=== PATIENT | female | born 1990 | race Caucasian/White ===

== ENCOUNTER 2017-05-09 13:36 | Emergency (ER) | payer OTHER ==
[~2017-05-09] VITALS: Ht 154.9 cm; Wt 38.6 kg
[~2017-05-09 13:36] MED LIST: AMOXIL500 MG PO; ANAPROX DS550 MG PO; AUGMENTIN 875875 MG PO; BACTRIM DS 8001 TA1 PO; CEPHALEXIN500 M1 PO; CLARITIN10 MG PO; DARVOCET N 1001 TAB PO; DELSYM30 MG/5 ML PO; FLONASE ALLERG9.9 ML NAS; IBU-8800 MG PO; KEFLEX500 M1 PO; KEFLEX500 MG PO; MACROBID100 M1 PO; MOTRIN800 MG PO; NAPROSYN500 MG PO; NKHM; OMNICEF125 MG/5 M PO; PERCOCET 325 MG1 TA2 PO; PERCOCET 325 MG1 TA6 PO; PHENERGAN W/DM120 ML PO; PREDNICOT20 MG PO; PREDNISONE10 MG PO; PRENATAL1 TA1 PO; ROBITUSSIN AC 110 ML PO; ROBITUSSIN DM 105 ML PO; TORADOL10 MG PO; TRAMADOL HCL50 MG PO; TRIMOX500 MG PO; ULTRAM50 MG PO; VICODIN 5/500 505 MG PO; ZITHROMAX Z PA250 MG PO; ZYRTEC10 MG PO
[2017-05-09 14:16] LABS: BASO # 0.1 10*3/uL (0.0-0.1); BASO % 0.5 % (0.0-1.0); EOS # 0.4 10*3/uL (0.0-0.4); EOS % 3.4 % (1.0-4.0); HEMATOCRIT 40.3 % (37.0-47.0); HEMOGLOBIN 13.6 g/dl (12.0-16.0); LYMPH # 2.5 10*3/uL (1.3-4.4); LYMPH % 22.5 % (27.0-41.0); MEAN CELL VOLUME 96.6 fl (81.0-99.0); MEAN CORPUSCULAR HGB 32.6 pg (27.0-31.0); MEAN CORPUSCULAR HGB CONC 33.7 g/dl (33.0-37.0); MEAN PLATELET VOLUME 10.1 fl (9.6-12.3); MONO # 0.7 10*3/uL (0.1-1.0); MONO % 6.3 % (3.0-9.0); NEUT # 7.4 10*3/uL (2.3-7.9); PLATELET COUNT AUTOMATED 153 10*3/uL (130-400); RED BLOOD COUNT 4.17 10*6/uL (4.10-5.10); RED CELL DISTRI WIDTH 13.2 % (0-14.5); WHITE BLOOD COUNT 11.1 10*3/uL (4.8-10.8)
[2017-05-09 14:21] LABS: BILIRUBIN NEGATIVE (NEGATIVE); BLOOD 3+ (NEGATIVE); CLARITY CLOUDY (CLEAR); COLOR YELLOW (YELLOW); GLUCOSE NEGATIVE (NEGATIVE); KETONE NEGATIVE (NEGATIVE); NITRITE NEGATIVE (NEGATIVE); PROTEIN 2+ (NEGATIVE)
[2017-05-09 14:33] LABS: ALBUMIN 4.1 gm/dl (3.1-4.5); ALKALINE PHOSPHATASE 90 U/L (45-117); BILIRUBIN, TOTAL 0.7 mg/dl (0.2-1.0); BUN 7 mg/dl (7-24); CARBON DIOXIDE 26 mmol/L (21-32); CHLORIDE 105 mmol/L (98-107); EST GLOM FILT AFRICAN AMERICAN > 60 ml/min; GLUCOSE 105 mg/dL (65-99); SGOT/AST 11 IU/L (3-35); SGPT/ALT 16 U/L (12-78); SODIUM 139 mmol/L (136-145); TOTAL PROTEIN 7.5 gm/dL (6.4-8.2)
[2017-05-09 14:34] LABS: LEUKO ESTERASE 2+ (NEGATIVE)
[2017-05-09 14:35] LABS: BACTERIA 2+; RBC TNTC rbc/hpf (0-2); URINE REFLEX COMMENT YES (NO)
[2017-05-09 18:05] VITALS: BP 107/52
[2017-05-09] MEDS ORDERED: MACROBID100 M1 PO (18:24)
[2017-05-09] MEDS ORDERED: PYRIDIUM200 M1 PO (18:24)
== END 2017-05-09 18:46 | disposition home or self-care (01) ==
LOC: ED 13:36
PROVIDERS: Nurse Practitioner Family
DX: N39.0 Urinary tract infection, site not specified (principal); R31.9 Hematuria, unspecified; F17.200 Nicotine dependence, unspecified, uncomplicated; Z87.442 Personal history of urinary calculi; Z98.51 Tubal ligation status; Z83.3 Family history of diabetes mellitus

== ENCOUNTER → 2018-02-16 | Outpatient (CLI) | payer OTHER ==
[~2018-02-16] MED LIST changes: +PYRIDIUM200 M1 PO
== END | disposition home or self-care (01) ==
LOC: RAD 13:26
DX: M79.642 Pain in left hand (principal)

== ENCOUNTER → 2018-05-23 | Outpatient (CLI) | payer OTHER | END | disposition home or self-care (01) | LOC: RAD 10:24 | DX: M25.871 Other specified joint disorders, right ankle and foot (principal) ==

== ENCOUNTER → 2018-05-31 | Outpatient (CLI) | payer OTHER | END | disposition home or self-care (01) | LOC: MAMMO 12:49 | DX: N63.10 Unspecified lump in the right breast, unspecified quadrant (principal) ==

== ENCOUNTER 2018-06-15 12:50 | Emergency (ER) | payer OTHER ==
[~2018-06-15] VITALS: Ht 170.1 cm; Wt 53.5 kg
--- NOTE | ~2018-06-15 | EKG ---
[place], [place] ELECTROCARDIOGRAM REPORT NAME: HAO HARRISON UNIT #: [id number] ROOM: DOCTOR: EPIPHANY DRAFT REPORT BIRTHDATE: [birth year] [facility] Test Date: 2018-06-15 Test Time: 12:57:17 Pat Name: HAO HARRISON Department: Room: Gender: F [employer] Consultant: : [id number] Requested By: AZIZA NELSON Order Number: [id number] Reading MD: Ta Hernandez MD Measurements Intervals [place] Rate: 68 P: 78 MI: 154 QRS: 78 QRSD: 103 T: 48 QT: 419 QTc: 446 Interpretive Statements Sinus rhythm Baseline wander in lead(s) V5 Electronically Signed On 06-15-2018 21:39:43 PDT by Ta Hernandez MD CM:EKGRPT:ELECTROCARDIOGRAM REPORT [id number] AZIZA CRAFT DRAFT REPORT AZIZA NELSON MD
[2018-06-15 12:55] VITALS: BP 109/65
[2018-06-15 13:18] LABS: BASO # 0.1 10*3/uL (0.0-0.1); BASO % 0.8 % (0.0-1.0); EOS # 0.3 10*3/uL (0.0-0.4); EOS % 3.9 % (1.0-4.0); HEMATOCRIT 38.3 % (37.0-47.0); LYMPH # 2.7 10*3/uL (1.3-4.4); LYMPH % 33.5 % (27.0-41.0); MEAN CELL VOLUME 96.5 fl (81.0-99.0); MEAN CORPUSCULAR HGB 32.7 pg (27.0-31.0); MEAN CORPUSCULAR HGB CONC 33.9 g/dl (33.0-37.0); MEAN PLATELET VOLUME 10.5 fl (9.6-12.3); MONO # 0.6 10*3/uL (0.1-1.0); MONO % 6.9 % (3.0-9.0); NEUT # 4.4 10*3/uL (2.3-7.9); NEUT % 54.8 % (47.0-73.0); PLATELET COUNT AUTOMATED 138 10*3/uL (130-400); RED BLOOD COUNT 3.97 10*6/uL (4.10-5.10); RED CELL DISTRI WIDTH 13.4 % (0-14.5)
[2018-06-15 13:28] LABS: ACT PARTIAL THROMBO TIME 25.9 SECONDS (20.8-31.5)
[2018-06-15 13:33] LABS: ALKALINE PHOSPHATASE 63 U/L (45-117); BUN 7 mg/dl (7-24); CHLORIDE 108 mmol/L (98-107); CREATININE 0.75 mg/dL (0.55-1.02); POTASSIUM 3.8 mmol/L (3.5-5.1); SGOT/AST 7 IU/L (3-35); SGPT/ALT 14 U/L (12-78); SODIUM 142 mmol/L (136-145); TOTAL PROTEIN 7.3 gm/dL (6.4-8.2)
[2018-06-15 13:34] LABS: TROPONIN I < 0.015 ng/ml (<0.045)
== END 2018-06-15 14:37 | disposition home or self-care (01) ==
LOC: ED 12:50
PROVIDERS: Emergency Medicine
DX: R07.89 Other chest pain (principal); R51 Headache; F17.210 Nicotine dependence, cigarettes, uncomplicated; Z98.51 Tubal ligation status

== ENCOUNTER → 2018-08-15 | Outpatient (CLI) | payer OTHER | END | disposition home or self-care (01) | LOC: RAD 15:41 | DX: M54.2 Cervicalgia (principal) ==

== ENCOUNTER 2019-08-03 20:42 | Emergency (ER) | payer OTHER ==
[~2019-08-03] VITALS: Ht 162.5 cm; Wt 43.1 kg
[2019-08-03 21:03] LABS: BASO # 0.1 10*3/uL (0.0-0.1); BASO % 0.8 % (0.0-1.0); EOS # 0.5 10*3/uL (0.0-0.4); EOS % 4.1 % (1.0-4.0); HEMATOCRIT 39.3 % (37.0-47.0); HEMOGLOBIN 13.2 g/dl (12.0-16.0); LYMPH # 4.1 10*3/uL (1.3-4.4); LYMPH % 35.2 % (27.0-41.0); MEAN CELL VOLUME 97.3 fl (81.0-99.0); MEAN CORPUSCULAR HGB 32.7 pg (27.0-31.0); MEAN CORPUSCULAR HGB CONC 33.6 g/dl (33.0-37.0); MEAN PLATELET VOLUME 10.8 fl (9.6-12.3); MONO # 0.8 10*3/uL (0.1-1.0); MONO % 7.2 % (3.0-9.0); NEUT # 6.2 10*3/uL (2.3-7.9); NEUT % 52.4 % (47.0-73.0); PLATELET COUNT AUTOMATED 163 10*3/uL (130-400); RED BLOOD COUNT 4.04 10*6/uL (4.10-5.10); RED CELL DISTRI WIDTH 13.8 % (0-14.5); WHITE BLOOD COUNT 11.7 10*3/uL (4.8-10.8)
[2019-08-03 21:16] LABS: ACT PARTIAL THROMBO TIME 23.9 SECONDS (20.0-32.1)
[2019-08-03 21:19] LABS: ALBUMIN 4.1 gm/dl (3.1-4.5); ALKALINE PHOSPHATASE 92 U/L (45-117); BUN 6 mg/dl (7-24); CHLORIDE 109 mmol/L (98-107); CREATININE 0.79 mg/dL (0.55-1.02); POTASSIUM 4.1 mmol/L (3.5-5.1); SGOT/AST 13 IU/L (3-35); SGPT/ALT 14 U/L (12-78); SODIUM 140 mmol/L (136-145); TOTAL PROTEIN 7.3 gm/dL (6.4-8.2)
[2019-08-03 21:20] LABS: TROPONIN I < 0.015 ng/ml (<0.045)
== END 2019-08-03 23:31 | disposition home or self-care (01) ==
LOC: ED 20:42
PROVIDERS: Emergency Medicine Emergency Medical Services
DX: R09.1 Pleurisy (principal); F41.9 Anxiety disorder, unspecified; R06.02 Shortness of breath; R61 Generalized hyperhidrosis; R07.89 Other chest pain; M54.9 Dorsalgia, unspecified; F17.200 Nicotine dependence, unspecified, uncomplicated; F12.90 Cannabis use, unspecified, uncomplicated

== ENCOUNTER 2019-08-08 08:21 | Emergency (ER) | payer OTHER ==
[~2019-08-08] VITALS: Ht 157.4 cm; Wt 43.1 kg
[2019-08-08 08:25] VITALS: BP 114/60
[2019-08-08] MEDS ORDERED: INDOMETHACIN50 MG PO (09:10)
[2019-08-08] MEDS ORDERED: Motrin,Rufen800 MG PO (11:08)
[2019-08-08] MEDS ORDERED: CYCLOBENZAPRINE10 MG PO (11:08)
== END 2019-08-08 11:14 | disposition home or self-care (01) ==
LOC: ED 08:21
DX: S16.1XXA Strain of muscle, fascia and tendon at neck level, initial encounter (principal); S29.012A Strain of muscle and tendon of back wall of thorax, initial encounter; R42 Dizziness and giddiness; X58.XXXA Exposure to other specified factors, initial encounter; Y93.89 Activity, other specified; Y92.89 Other specified places as the place of occurrence of the external cause; Y99.8 Other external cause status

== ENCOUNTER → 2019-11-26 | Outpatient (CLI) | payer OTHER ==
[~2019-11-26] MED LIST changes: +CYCLOBENZAPRINE10 MG PO; +INDOMETHACIN50 MG PO; +Motrin,Rufen800 MG PO
[2019-11-26 10:48] LABS: BASO # 0.1 10*3/uL (0.0-0.1); BASO % 0.9 % (0.0-1.0); EOS # 0.4 10*3/uL (0.0-0.4); EOS % 4.9 % (1.0-4.0); HEMATOCRIT 40.2 % (37.0-47.0); HEMOGLOBIN 13.1 g/dl (12.0-16.0); LYMPH # 2.8 10*3/uL (1.3-4.4); LYMPH % 35.7 % (27.0-41.0); MEAN CORPUSCULAR HGB 32.6 pg (27.0-31.0); MEAN CORPUSCULAR HGB CONC 32.6 g/dl (33.0-37.0); MEAN PLATELET VOLUME 11.2 fl (9.6-12.3); MONO # 0.5 10*3/uL (0.1-1.0); MONO % 6.5 % (3.0-9.0); NEUT % 51.7 % (47.0-73.0); PLATELET COUNT AUTOMATED 164 10*3/uL (130-400); RED BLOOD COUNT 4.02 10*6/uL (4.10-5.10); RED CELL DISTRI WIDTH 12.8 % (0-14.5); WHITE BLOOD COUNT 7.7 10*3/uL (4.8-10.8)
[2019-11-26 11:06] LABS: ALKALINE PHOSPHATASE 89 U/L (45-117); BUN 5 mg/dl (7-24); CHLORIDE 110 mmol/L (98-107); CHOLESTEROL 141 mg/dL (<200); CREATININE 0.79 mg/dL (0.55-1.02); HDL CHOLESTEROL 41 mg/dl (40-60); LDL CHOLESTEROL 85 mg/dL (9-159); POTASSIUM 3.9 mmol/L (3.5-5.1); SGOT/AST 9 IU/L (3-35); SGPT/ALT 18 U/L (12-78); SODIUM 140 mmol/L (136-145); TOTAL PROTEIN 7.6 gm/dL (6.4-8.2); TRIGLYCERIDES 74 mg/dl (<150); VLDL CHOLESTEROL 15 mg/dL (6-40)
[2019-11-26 11:34] LABS: VITAMIN D, 25-HYDROXY 15.1 ng/mL (30-100)
[2019-11-27 16:09] LABS: EBV NUCLEAR ANTIGEN IGG <18.0 U/mL (0.0-17.9); EPSTEIN-BARR VCA IGM AB <36.0 U/mL (0.0-35.9)
== END | disposition home or self-care (01) ==
LOC: LAB 10:07
PROVIDERS: Nurse Practitioner Family
DX: D64.9 Anemia, unspecified (principal); R53.83 Other fatigue; R21 Rash and other nonspecific skin eruption

== ENCOUNTER → 2019-11-29 | Outpatient (CLI) | payer OTHER | END | disposition home or self-care (01) | LOC: RAD 09:24 | DX: R06.00 Dyspnea, unspecified (principal); R05 Cough ==

== ENCOUNTER → 2019-12-03 | Outpatient (CLI) | payer OTHER | END | disposition home or self-care (01) | LOC: CT 10:45 | DX: G44.029 Chronic cluster headache, not intractable (principal); R42 Dizziness and giddiness ==

== ENCOUNTER → 2020-03-12 | Outpatient (CLI) | payer OTHER | LOC: US 13:27 | DX: N92.0 Excessive and frequent menstruation with regular cycle (principal); N85.9 Noninflammatory disorder of uterus, unspecified ==

== ENCOUNTER 2020-04-19 12:46 | Emergency (ER) | payer OTHER ==
[~2020-04-19] VITALS: Ht 165.1 cm; Wt 51.3 kg
[2020-04-19 12:50] VITALS: BP 119/60
[2020-04-19 14:25] LABS: BASO # 0.1 10*3/uL (0.0-0.1); BASO % 0.8 % (0.0-1.0); EOS # 0.3 10*3/uL (0.0-0.4); EOS % 3.2 % (1.0-4.0); HEMATOCRIT 41.2 % (37.0-47.0); LYMPH # 2.5 10*3/uL (1.3-4.4); LYMPH % 27.8 % (27.0-41.0); MEAN CELL VOLUME 97.2 fl (81.0-99.0); MEAN CORPUSCULAR HGB 32.5 pg (27.0-31.0); MEAN CORPUSCULAR HGB CONC 33.5 g/dl (33.0-37.0); MEAN PLATELET VOLUME 9.7 fl (9.6-12.3); MONO # 0.4 10*3/uL (0.1-1.0); MONO % 4.8 % (3.0-9.0); NEUT # 5.7 10*3/uL (2.3-7.9); NEUT % 63.2 % (47.0-73.0); PLATELET COUNT AUTOMATED 171 10*3/uL (130-400); RED BLOOD COUNT 4.24 10*6/uL (4.10-5.10); WHITE BLOOD COUNT 9.1 10*3/uL (4.8-10.8)
[2020-04-19 14:39] LABS: ALBUMIN 4.4 gm/dl (3.1-4.5); ALKALINE PHOSPHATASE 68 U/L (45-117); BUN 11 mg/dl (7-24); CHLORIDE 112 mmol/L (98-107); CREATININE 0.69 mg/dL (0.55-1.02); POTASSIUM 3.9 mmol/L (3.5-5.1); SGOT/AST 8 IU/L (3-35); SGPT/ALT 17 U/L (12-78); SODIUM 142 mmol/L (136-145); TOTAL PROTEIN 7.8 gm/dL (6.4-8.2)
[2020-04-19 16:12] LABS: BILIRUBIN NEGATIVE (NEGATIVE); BLOOD 3+ (NEGATIVE); CLARITY SL CLOUDY (CLEAR); COLOR YELLOW (YELLOW); GLUCOSE NEGATIVE (NEGATIVE); KETONE NEGATIVE (NEGATIVE); LEUKO ESTERASE NEGATIVE (NEGATIVE); NITRITE NEGATIVE (NEGATIVE); PH 7.5 (5.0-9.0); SPECIFIC GRAVITY 1.015 (1.005-1.030); UROBILINOGEN 0.2 E.U./dl (0.2-1.0)
[2020-04-19 16:16] LABS: BACTERIA 1+; EPITHELIAL CELLS 31-40; RBC 41-50 rbc/hpf (0-2)
== END 2020-04-19 16:25 | disposition home or self-care (01) ==
LOC: ED 12:46
PROVIDERS: Physician Assistant
DX: N93.9 Abnormal uterine and vaginal bleeding, unspecified (principal)

== ENCOUNTER → 2020-04-29 | Outpatient (CLI) | payer OTHER | END | disposition home or self-care (01) | LOC: RAD 10:18 | DX: R10.9 Unspecified abdominal pain (principal); Z98.51 Tubal ligation status ==

== ENCOUNTER → 2020-09-03 | Outpatient (CLI) | payer OTHER ==
[2020-09-03 11:54] LABS: BUN 7 mg/dl (7-24); CHLORIDE 108 mmol/L (98-107); CREATININE 0.77 mg/dL (0.55-1.02); POTASSIUM 3.5 mmol/L (3.5-5.1); SODIUM 140 mmol/L (136-145)
[2020-09-03 12:35] LABS: URINE AMPHETAMINES < 1000 (1000ng/ml); URINE BARBITURATES < 200 (200ng/ml); URINE BENZODIAZEPINES < 200 (200ng/ml); URINE CANNABINOIDS (THC) > 50 (50ng/ml); URINE COCAINE < 300 (300ng/ml); URINE METHADONE < 300 (300ng/ml); URINE OPIATES < 300 (300ng/ml)
[2020-09-03 12:39] LABS: URINE PHENCYCLIDINE < 25 (25ng/ml)
== END | disposition home or self-care (01) ==
LOC: LAB 00:55 → COVID19 00:55
PROVIDERS: ATTEND Family Medicine
DX: Z01.818 Encounter for other preprocedural examination (principal); Z20.828 Contact with and (suspected) exposure to other viral communicable diseases

== ENCOUNTER 2020-10-05 15:56 | Emergency (ER) | payer OTHER ==
[~2020-10-05] VITALS: Ht 157.4 cm; Wt 49.4 kg
[2020-10-05 16:18] VITALS: BP 121/70
[2020-10-05 17:42] LABS: BASO # 0.1 10*3/uL (0.0-0.1); BASO % 0.8 % (0.0-1.0); EOS # 0.4 10*3/uL (0.0-0.4); LYMPH # 2.9 10*3/uL (1.3-4.4); LYMPH % 39.4 % (27.0-41.0); MEAN CELL VOLUME 94.9 fl (81.0-99.0); MEAN CORPUSCULAR HGB CONC 32.7 g/dl (33.0-37.0); MEAN PLATELET VOLUME 10.2 fl (9.6-12.3); MONO # 0.5 10*3/uL (0.1-1.0); MONO % 7.4 % (3.0-9.0); NEUT # 3.5 10*3/uL (2.3-7.9); NEUT % 47.3 % (47.0-73.0); PLATELET COUNT AUTOMATED 174 10*3/uL (130-400); RED CELL DISTRI WIDTH 12.9 % (0-14.5); WHITE BLOOD COUNT 7.3 10*3/uL (4.8-10.8)
[2020-10-05 17:54] LABS: BILIRUBIN Negative (Negative); BLOOD 3+ (Negative); CLARITY Clear (Clear); COLOR Yellow (Yellow); GLUCOSE Negative (Negative); KETONE Negative (Negative); LEUKO ESTERASE Negative (Negative); NITRITE Negative (Negative); SPECIFIC GRAVITY <= 1.005 (1.001-1.030); UROBILINOGEN 0.2 E.U./dl (0.0-1.0)
[2020-10-05 17:58] LABS: ALBUMIN 3.9 gm/dl (3.1-4.5); ALKALINE PHOSPHATASE 98 U/L (45-117); BUN 6 mg/dl (7-24); CREATININE 0.66 mg/dL (0.55-1.02); LIPASE 52 U/L (73-393); SGOT/AST 8 IU/L (3-35); SGPT/ALT 16 U/L (12-78); TOTAL PROTEIN 7.2 gm/dL (6.4-8.2)
[2020-10-05 18:09] LABS: BACTERIA 1+; EPITHELIAL CELLS 0-2; RBC 0-2 rbc/hpf (0-2); WBC 0-2 wbc/hpf (0-5)
[2020-10-05 18:49] LABS: CHLORIDE 111 mmol/L (98-107); POTASSIUM 3.4 mmol/L (3.5-5.1); SODIUM 143 mmol/L (136-145)
[2020-10-05] MEDS ORDERED: CIPROFLOXACIN250 MG PO (21:10)
== END 2020-10-05 22:59 | disposition home or self-care (01) ==
LOC: ED 15:56
PROVIDERS: Nurse Practitioner
DX: K52.9 Noninfective gastroenteritis and colitis, unspecified (principal); N39.0 Urinary tract infection, site not specified; Z90.710 Acquired absence of both cervix and uterus

== ENCOUNTER → 2021-03-11 | Outpatient (CLI) | payer OTHER ==
[~2021-03-11] MED LIST changes: +CIPROFLOXACIN250 MG PO
[2021-03-11 08:16] LABS: HEMATOCRIT 39.4 % (37.0-47.0); MEAN CELL VOLUME 95.6 fl (81.0-99.0); MEAN CORPUSCULAR HGB 32.3 pg (27.0-31.0); MEAN CORPUSCULAR HGB CONC 33.8 g/dl (33.0-37.0); MEAN PLATELET VOLUME 10.8 fl (9.6-12.3); RED BLOOD COUNT 4.12 10*6/uL (4.10-5.10); RED CELL DISTRI WIDTH 13.1 % (0-14.5); WHITE BLOOD COUNT 7.4 10*3/uL (4.8-10.8)
[2021-03-11 08:48] LABS: ALBUMIN 4.3 gm/dl (3.1-4.5); ALKALINE PHOSPHATASE 98 U/L (45-117); BUN 9 mg/dl (7-24); CHLORIDE 108 mmol/L (98-107); CHOLESTEROL 171 mg/dL (<200); CREATININE 0.74 mg/dL (0.55-1.02); POTASSIUM 3.7 mmol/L (3.5-5.1); SGOT/AST 12 IU/L (3-35); SGPT/ALT 21 U/L (12-78); SODIUM 141 mmol/L (136-145); TOTAL PROTEIN 7.5 gm/dL (6.4-8.2); TRIGLYCERIDES 41 mg/dl (<150); VLDL CHOLESTEROL 8 mg/dL (6-40)
[2021-03-11 09:03] LABS: HDL CHOLESTEROL 47 mg/dl (40-60); LDL CHOLESTEROL 116 mg/dL (9-159)
== END | disposition home or self-care (01) ==
LOC: LAB 07:59
PROVIDERS: ATTEND Family Medicine
DX: M25.512 Pain in left shoulder (principal); E74.00 Glycogen storage disease, unspecified; E74.9 Disorder of carbohydrate metabolism, unspecified; E78.00 Pure hypercholesterolemia, unspecified; F41.1 Generalized anxiety disorder

== ENCOUNTER → 2021-05-11 | Outpatient (CLI) | payer OTHER | END | disposition home or self-care (01) | LOC: US 05-06 13:00 | PROVIDERS: ATTEND Nurse Practitioner Family | DX: D24.2 Benign neoplasm of left breast (principal) ==

== ENCOUNTER 2021-08-12 14:05 | Emergency (ER) | payer OTHER ==
[~2021-08-12] VITALS: Ht 152.4 cm; Wt 45.8 kg
[2021-08-12 14:20] VITALS: BP 118/74
== END 2021-08-12 16:24 | disposition home or self-care (01) ==
LOC: ED 14:05
DX: U07.1 COVID-19 (principal); F17.210 Nicotine dependence, cigarettes, uncomplicated

== ENCOUNTER → 2022-05-31 | Outpatient (CLI) | payer OTHER | END | disposition home or self-care (01) | LOC: RAD 14:41 | PROVIDERS: ATTEND Family Medicine | DX: M79.641 Pain in right hand (principal) ==

== ENCOUNTER 2022-10-19 09:53 | Emergency (ER) | payer OTHER ==
[~2022-10-19] VITALS: Wt 45.4 kg
[2022-10-19 10:09] VITALS: BP 132/72
== END 2022-10-19 11:55 | disposition left against medical advice (07) ==
LOC: ED 09:53
DX: Z53.21 Procedure and treatment not carried out due to patient leaving prior to being seen by health care provider (principal)

== ENCOUNTER → 2023-02-24 | Outpatient (CLI) | payer OTHER | END | disposition home or self-care (01) | LOC: RAD 09:26 | PROVIDERS: ATTEND Family Medicine | DX: M47.812 Spondylosis without myelopathy or radiculopathy, cervical region (principal) ==

== ENCOUNTER 2024-08-31 09:42 | Emergency (ER) | payer OTHER ==
[~2024-08-31] VITALS: Ht 152.4 cm; Wt 50.2 kg
[~2024-08-31 09:42] MED LIST changes: +CYCLOBENZAPRINE5 M3 PO; +MELOXICAM15 MG PO
[2024-08-31 09:52] VITALS: BP 120/77
[2024-08-31] MEDS ORDERED: Sulfamethoxazole/Trimethopri 1 TAB TAB PO ONE (10:00)
[2024-08-31] MEDS ORDERED: SEPTDS PO (10:03)
== END 2024-08-31 09:58 | disposition home or self-care (01) ==
LOC: ED 09:42
DX: L73.9 Follicular disorder, unspecified (principal); Z90.711 Acquired absence of uterus with remaining cervical stump

== ENCOUNTER 2024-09-09 17:10 | Emergency (ER) | payer OTHER ==
[~2024-09-09] VITALS: Ht 154.9 cm; Wt 45.8 kg
[~2024-09-09 17:10] MED LIST changes: +SEPTDS PO
[2024-09-09 17:27] VITALS: BP 141/81
[2024-09-09] MEDS ORDERED: Ketorolac Tromethamine 30 MG/ML VIAL IM ONE (19:20)
[2024-09-09] MEDS ORDERED: Tdap Vaccine 0.5 ML SYR (Adult Vaccine) IM ONE (19:20)
== END 2024-09-09 19:59 | disposition home or self-care (01) ==
LOC: ED 17:10
DX: S91.332A Puncture wound without foreign body, left foot, initial encounter (principal); Z90.711 Acquired absence of uterus with remaining cervical stump; W45.0XXA Nail entering through skin, initial encounter; Y93.89 Activity, other specified; Y92.009 Unspecified place in unspecified non-institutional (private) residence as the place of occurrence of the external cause; Y99.8 Other external cause status

== ENCOUNTER → 2025-04-08 | Outpatient (CLI) | payer OTHER ==
[2025-04-08 09:27] LABS: HEMATOCRIT 39.1 % (37.0-47.0); MEAN CELL VOLUME 97.3 fl (81.0-99.0); MEAN CORPUSCULAR HGB 32.3 pg (27.0-31.0); MEAN CORPUSCULAR HGB CONC 33.2 g/dl (33.0-37.0); MEAN PLATELET VOLUME 10.7 fl (9.6-12.3); RED BLOOD COUNT 4.02 10*6/uL (4.10-5.10); RED CELL DISTRI WIDTH 12.4 % (0-14.5); WHITE BLOOD COUNT 9.3 10*3/uL (4.8-10.8)
[2025-04-08 09:53] LABS: ALKALINE PHOSPHATASE 67 U/L (46-116); BUN 7 mg/dl (9-23); CHLORIDE 107 mmol/L (98-107); CHOLESTEROL 207 mg/dL (<200); FREE T4 1.27 ng/dl (0.89-1.76); LDL CHOLESTEROL 141 mg/dL (9-159); POTASSIUM 3.6 mmol/L (3.4-5.1); SGPT/ALT 16 U/L (5-49); TOTAL PROTEIN 7.9 gm/dL (6.0-8.0); TRIGLYCERIDES 84 mg/dl (<150)
[2025-04-08 10:17] LABS: VITAMIN D, 25-HYDROXY 17.3 ng/mL (30-100)
== END | disposition home or self-care (01) ==
LOC: LAB 08:38
PROVIDERS: ATTEND Family Medicine
DX: E78.00 Pure hypercholesterolemia, unspecified (principal); E55.9 Vitamin D deficiency, unspecified; K64.8 Other hemorrhoids; R25.1 Tremor, unspecified; F41.1 Generalized anxiety disorder; E74.00 Glycogen storage disease, unspecified; R63.4 Abnormal weight loss; R41.3 Other amnesia

== ENCOUNTER 2025-04-26 17:05 | Emergency (ER) | payer OTHER ==
[~2025-04-26] VITALS: Ht 162.5 cm; Wt 46.3 kg
[2025-04-26 17:20] VITALS: BP 141/92
[2025-04-26] MEDS ORDERED: NAPROSYN500 MG PO (17:40)
[2025-04-26] MEDS ORDERED: PENICILLIN VK500 MG PO (17:40)
[2025-04-26] MEDS ORDERED: Lidocaine Hydrochloride 15 ML UDC PO STA (17:41)
[2025-04-26] MEDS ORDERED: BENZOCAINE 20% 11.9 GM GEL T STA (17:41)
[2025-04-26] MEDS ORDERED: PENICILLIN V POTASSIUM 500 MG TAB PO ONE (17:45)
[2025-04-26] MEDS ORDERED: Acetaminophen/Hydrocodone 5 MG/325 MG TABLET PO ONE (17:45)
[2025-04-26] MEDS ORDERED: Ketorolac Tromethamine 60 MG/2 ML VIAL IM ONE (17:45)
== END 2025-04-26 18:37 | disposition home or self-care (01) ==
LOC: ED 17:05
DX: K04.7 Periapical abscess without sinus (principal); K02.9 Dental caries, unspecified; F41.9 Anxiety disorder, unspecified; Z90.711 Acquired absence of uterus with remaining cervical stump; Z79.899 Other long term (current) drug therapy

== ENCOUNTER 2025-06-12 16:38 | Emergency (ER) | payer OTHER ==
[~2025-06-12] VITALS: Ht 152.4 cm; Wt 45.8 kg
[~2025-06-12 16:38] MED LIST changes: +PENICILLIN VK500 MG PO
[2025-06-12 17:06] VITALS: BP 127/62
[2025-06-12] MEDS ORDERED: Acetaminophen/Hydrocodone 5 MG/325 MG TABLET PO ONE (17:25)
[2025-06-12] MEDS ORDERED: IBUPROFEN 600 MG TAB PO ONE (17:25)
[2025-06-12] MEDS ORDERED: CYCLOBENZAPRINE10 MG PO (18:53)
== END 2025-06-12 19:36 | disposition home or self-care (01) ==
LOC: ED 16:38
DX: S16.1XXA Strain of muscle, fascia and tendon at neck level, initial encounter (principal); S46.911A Strain of unspecified muscle, fascia and tendon at shoulder and upper arm level, right arm, initial encounter; S60.221A Contusion of right hand, initial encounter; S09.90XA Unspecified injury of head, initial encounter; Z79.899 Other long term (current) drug therapy; Z90.710 Acquired absence of both cervix and uterus; W11.XXXA Fall on and from ladder, initial encounter; Y93.89 Activity, other specified; Y92.89 Other specified places as the place of occurrence of the external cause; Y99.8 Other external cause status

== ENCOUNTER → 2025-08-01 | Outpatient (CLI) | payer OTHER | LOC: LAB 12:49 | PROVIDERS: ATTEND Family Medicine | DX: M25.562 Pain in left knee (principal); R53.83 Other fatigue; R51.9 Headache, unspecified; M79.18 Myalgia, other site ==

== ENCOUNTER 2025-10-07 15:00 | Emergency (ER) | payer OTHER ==
[~2025-10-07] VITALS: Wt 45.4 kg
[2025-10-07 15:08] VITALS: BP 142/86
[2025-10-07] MEDS ORDERED: Acetaminophen/Hydrocodone 5 MG/325 MG TABLET PO ONE (15:25)
[2025-10-07] MEDS ORDERED: Rabies Vaccine 1 ML VIAL IM ONE (15:25)
[2025-10-07] MEDS ORDERED: AMOX-CLAV 875-1 EACH PO (15:29)
[2025-10-07] MEDS ORDERED: Amoxicillin/Clavulanate Pota 875 MG TAB PO ONE (15:30)
[2025-10-07] MEDS ORDERED: HYDROCODONE-AC1 EAC1 PO (16:16)
== END 2025-10-07 16:41 | disposition home or self-care (01) ==
LOC: ED 15:00
DX: S61.552A Open bite of left wrist, initial encounter (principal); Z90.710 Acquired absence of both cervix and uterus; W55.01XA Bitten by cat, initial encounter; Y93.89 Activity, other specified; Y92.89 Other specified places as the place of occurrence of the external cause; Y99.8 Other external cause status

== ENCOUNTER 2025-10-10 08:02 | Emergency (ER) | payer OTHER ==
[~2025-10-10] VITALS: Ht 152.4 cm; Wt 45.4 kg
[~2025-10-10 08:02] MED LIST changes: +AMOX-CLAV 875-1 EACH PO; +HYDROCODONE-AC1 EAC1 PO
[2025-10-10 08:22] VITALS: BP 134/81
[2025-10-10] MEDS ORDERED: Tdap Vaccine 0.5 ML SYR (Adult Vaccine) IM ONE (08:35)
[2025-10-10] MEDS ORDERED: Rabies Vaccine 1 ML VIAL IM ONE (08:55)
== END 2025-10-10 09:10 | disposition home or self-care (01) ==
LOC: ED 08:02
DX: S60.212D Contusion of left wrist, subsequent encounter (principal); Z23 Encounter for immunization; Z90.710 Acquired absence of both cervix and uterus; Z79.899 Other long term (current) drug therapy; W55.01XD Bitten by cat, subsequent encounter

== ENCOUNTER 2025-10-14 07:45 | Emergency (ER) | payer OTHER ==
[~2025-10-14] VITALS: Ht 152.4 cm; Wt 45.4 kg
[2025-10-14 07:57] VITALS: BP 122/83
[2025-10-14] MEDS ORDERED: Rabies Vaccine 1 ML VIAL IM ONE (08:10)
== END 2025-10-14 09:27 | disposition home or self-care (01) ==
LOC: ED 07:45
DX: S61.552D Open bite of left wrist, subsequent encounter (principal); Z23 Encounter for immunization; Z90.710 Acquired absence of both cervix and uterus; W55.01XD Bitten by cat, subsequent encounter

== ENCOUNTER 2025-10-21 07:29 | Emergency (ER) | payer OTHER ==
[~2025-10-21] VITALS: Ht 152.4 cm; Wt 45.4 kg
[2025-10-21 07:35] VITALS: BP 109/62
[2025-10-21] MEDS ORDERED: Rabies Vaccine 1 ML VIAL IM ONE (08:00)
== END 2025-10-21 08:00 | disposition home or self-care (01) ==
LOC: ED 07:29
DX: Z23 Encounter for immunization (principal); Z90.710 Acquired absence of both cervix and uterus

== ENCOUNTER → 2025-10-24 | Outpatient (CLI) | payer OTHER ==
[2025-10-24 08:16] LABS: MEAN CELL VOLUME 97.2 fl (81.0-99.0); MEAN CORPUSCULAR HGB 31.7 pg (27.0-31.0); MEAN PLATELET VOLUME 10.0 fl (9.6-12.3); NUCLEATED RED BLOOD CELL 0.0 % (0.0-0.0); NUCLEATED RED BLOOD CELL 0.0 10*3/uL (0.0-0.0); PLATELET COUNT AUTOMATED 163.0 10*3/uL (130-400); RED CELL DISTRI WIDTH 12.8 % (0-14.5)
[2025-10-24 09:01] LABS: BUN 8 mg/dl (9-23); LDL CHOLESTEROL 129 mg/dL (9-159); SGPT/ALT 17 U/L (5-49)
[2025-10-24 09:04] LABS: VITAMIN D, 25-HYDROXY 27.5 ng/mL (30-100)
== END | disposition home or self-care (01) ==
LOC: LAB 07:56
PROVIDERS: ATTEND Family Medicine
DX: E74.9 Disorder of carbohydrate metabolism, unspecified (principal); E55.9 Vitamin D deficiency, unspecified; F41.1 Generalized anxiety disorder; E74.00 Glycogen storage disease, unspecified; R53.83 Other fatigue; R51.9 Headache, unspecified; L03.114 Cellulitis of left upper limb